=== PATIENT | female | born 1975 | race Caucasian/White ===

== ENCOUNTER 2017-01-29 10:11 | Outpatient (CLI) | payer BC ==
[~2017-01-29] VITALS: Ht 181.6 cm; Wt 105.7 kg
[~2017-01-29 10:11] MED LIST: ASP81TEC; ASPI-999 PO; CEFD300C PO; CPR250T PO; CYCL10TA9 PO; DOXY100T61 PO; IBP600T1 PO; LEVO750T6 PO; METR500T PO; NAPR-243 PO; OXYC-12 PO; PNV1CAPS13 PO; PREN1TAB39 PO; PROM12.59 PO; TAPE50TA2 PO; TRM50T PO
--- OUTSIDE RECORDS SUMMARY | 2017-01-29 10:17 | XMS REPORT | Continuity of Care Document ---
Demographics Preferred Language Unknown Marital Status Unknown Latter Day Affiliation Unknown Race Unknown Ethnic Group Unknown Author Author [facility] Address Unknown Phone Unavailable Allergies Active Description Code Type Severity Reaction Onset Reported/Identified Relationship to Patient Clinical Status Yes Demerol Drug Allergy N/A N/A 08/03/2009 Yes morphine Drug Allergy N/A N/A 08/03/2009 Yes [id number] (OPIOID ANALGESICS) [id number] (OPIOID ANALGESICS) Mild N/A 10/11/2009 Yes meperidine [id number] Drug Allergy Mild N/A 10/11/2009 Yes morphine [id number] Drug Allergy Mild N/A 10/11/2009 Yes oxycodone [id number] Drug Allergy Mild ITCHING, CAN TA 04/29/2014 Medications Problems Date Dx Coded Attending Type Code Diagnosis Diagnosed By 01/12/2009 599.0 Urinary Tract Infection Site Not Specified 01/12/2009 599.0 Urinary Tract Infection Site Not Specified 08/03/2009 465.9 Acute Upper Respiratory Infections Of Unspecified Site 08/03/2009 465.9 Acute Upper Respiratory Infections Of Unspecified Site 10/03/2009 V72.31 ROUTINE GYNECOLOGICAL EXAMINATION 10/03/2009 V72.31 ROUTINE GYNECOLOGICAL EXAMINATION 01/20/2010 641.90 Comp. Bleed In Preg. Unsp 01/20/2010 649.50 Maternal Spotting Complicat / / Puerperium 01/20/2010 656.13 Rh ISOIMMUN AFFECT CARE OF MOTHER ANTEPARTUM COND/COMPLIC 01/20/2010 V23.89 Supervision Of Other High-risk 01/20/2010 641.90 Comp. Bleed In Preg. Unsp 01/20/2010 649.50 Maternal Spotting Complicat / / Puerperium 01/20/2010 656.13 Rh ISOIMMUN AFFECT CARE OF MOTHER ANTEPARTUM COND/COMPLIC 01/20/2010 V23.89 Supervision Of Other High-risk 01/26/2010 V74.5 STD SCREEN 01/26/2010 V74.5 STD SCREEN 03/06/2010 454.8 VARICOSE VEINS WITH PAIN 03/06/2010 V22.1 Pc Other Normal 03/06/2010 454.8 VARICOSE VEINS WITH PAIN 03/06/2010 V22.1 Pc Other Normal 03/23/2010 787.01 Nausea With Vomiting 03/23/2010 787.01 Nausea With Vomiting 07/06/2010 530.81 Esophageal Reflux 07/06/2010 530.81 Esophageal Reflux 07/31/2010 625.9 Female Pelvic Pain 07/31/2010 625.9 Female Pelvic Pain 08/11/2010 Ot 623.5 08/11/2010 Ot 654.73 08/23/2010 709.9 DERMATOLOGY - SKIN CONDITION 08/23/2010 709.9 DERMATOLOGY - SKIN CONDITION 09/21/2010 Ot 641.21 09/21/2010 Ot 645.11 09/21/2010 Ot 658.01 09/21/2010 Ot 659.71 09/21/2010 Ot 660.31 09/21/2010 Ot 663.31 09/21/2010 Ot 671.01 09/21/2010 Ot 671.81 09/21/2010 Ot V06.1 09/21/2010 Ot V27.0 11/01/2010 V24.2 ROUTINE FOLLOW-UP 11/01/2010 V24.2 ROUTINE FOLLOW-UP 01/11/2013 Ot 562.11 DIVERTICULITIS COLON (W/O MENT OF HEMORR 02/23/2013 Ot 562.10 DIVERTICULOSIS COLON (W/O MENT OF HEMORR 06/21/2013 BERTIN DOBBINS, HEIKE R Ot 082.40 UNSPEC EHRLICHIOSIS 06/21/2013 BERTIN DOBBINS, HEIKE R Ot 478.19 OTHER DISEASE OF NASAL CAVITY AND SINUSE 06/21/2013 BERTIN DOBBINS, HEIKE R Ot 790.6 ABN BLOOD CHEMISTRY NEC 04/17/2014 MAGNO DOBBINS, BEKAH Soto Ot 562.11 DIVERTICULITIS COLON (W/O MENT OF HEMORR 04/17/2014 BEKAH KIRAN MD Ot 789.04 ABDOMINAL PAIN, LEFT LOWER QUADRANT 05/03/2014 HERNÁN DOBBINS, BENNY Rose Ot 562.11 DIVERTICULITIS COLON (W/O MENT OF HEMORR 10/20/2014 Ot V28.89 10/20/2014 Ot V07.2 10/20/2014 Ot V72.84 10/20/2014 BENNY JIM MD Ot 562.11 10/20/2014 HERNÁN DOBBINS, BENNY M Ot V72.83 10/20/2014 HERNÁN DOBBINS, BENNY M Ot V74.8 10/21/2014 Ot V28.89 10/21/2014 Ot V07.2 10/21/2014 Ot V72.84 10/21/2014 HERNÁN DOBBINS, BENNY Rose Ot 562.11 10/21/2014 HERNÁN DOBBNIS, BENNY M Ot V72.83 10/21/2014 HERNÁN DOBBINS, BENNY Rose Ot V74.8 04/18/2015 Ot V28.89 04/18/2015 Ot V07.2 04/18/2015 Ot V72.84 04/18/2015 HERNÁN DOBBINS, BENNY Rose Ot 562.11 04/18/2015 HERNÁN DOBBINS, BENNY Rose Ot V72.83 04/18/2015 HERNÁN DOBBINS, BENNY Rose Ot V74.8 04/18/2015 CARISSA NOLASCO DO Ot 451.0 SUPERFIC PHLEBITIS-LEG 04/18/2015 CARISSA NOLASCO DO Ot 729.5 PAIN IN LIMB 04/18/2015 Ot V28.89 04/18/2015 Ot V07.2 04/18/2015 Ot V72.84 04/18/2015 HERNÁN DOBBINS, BENNY Rose Ot 562.11 04/18/2015 HERNÁN DOBBINS, BENNY Rose Ot V72.83 04/18/2015 HERNÁN DOBBINS, BENNY Rose Ot V74.8 10/19/2015 Ot V28.89 10/19/2015 Ot V07.2 10/19/2015 Ot V72.84 10/19/2015 HERNÁN DOBBINS, BENNY Rose Ot 562.11 10/19/2015 HERNÁN DOBBINS, BENNY Rose Ot V72.83 10/19/2015 HERNÁN DOBBINS, BENNY Rose Ot V74.8 10/24/2015 Ot V28.89 10/24/2015 Ot V07.2 10/24/2015 Ot V72.84 10/24/2015 HERNÁN DOBBINS, BENNY Rose Ot 562.11 10/24/2015 HERNÁN DOBBINS, BENNY Rose Ot V72.83 10/24/2015 HERNÁN DOBBINS, BENNY Rose Ot V74.8 10/24/2015 CARISSA NOLASCO DO Ot S80.11XA CONTUSION OF RIGHT LOWER LEG, INITIAL EN 10/24/2015 CARISSA NOLASCO DO Ot X58.XXXA EXPOSURE TO OTHER SPECIFIED FACTORS, INI 10/24/2015 CARISSA NOLASCO DO Ot Y99.8 OTHER EXTERNAL CAUSE STATUS 10/24/2015 CARISSA NOLASCO DO Ot Z86.718 PERSONAL HISTORY OF OTHER VENOUS THROMBO 02/10/2016 Ot V72.84 02/10/2016 HERNÁN DOBBINS, BENNY Rose Ot 562.11 02/10/2016 BENNY JIM MD Ot V72.83 02/10/2016 BENNY JIM MD Ot V74.8 05/28/2016 CANDIS MONSALVE Ot S73.101A UNSPECIFIED SPRAIN OF RIGHT HIP, INITIAL 05/28/2016 CANDIS MONSALVE Ot S83.91XA SPRAIN OF UNSPECIFIED SITE OF RIGHT KNEE 05/28/2016 CANDIS MONSALVE Ot S93.402A SPRAIN OF UNSPECIFIED LIGAMENT OF LEFT A 05/28/2016 CANDIS MONSALVE Ot W10.9XXA FALL (ON) (FROM) UNSPECIFIED STAIRS AND 05/28/2016 CANDIS MONSALVE Ot Y92.[address] 05/28/2016 CANDIS MONSALVE Ot Y99.8 OTHER EXTERNAL CAUSE STATUS 05/28/2016 Ot V72.84 EXAM PRE-OPERATIVE NOS 05/28/2016 HERNÁN DOBBINS, BENNY Rose Ot 562.11 DIVERTICULITIS COLON (W/O MENT OF HEMORR 05/28/2016 BENNY JIM MD Ot V72.83 EXAM PRE-OPERATIVE NEC 05/28/2016 BENNY JIM MD Ot V74.8 SCREEN-BACTERIAL DIS NEC 05/29/2016 CANDIS MONSALVE Ot S73.101A UNSPECIFIED SPRAIN OF RIGHT HIP, INITIAL 05/29/2016 CANDIS MONSALVE Ot S83.91XA SPRAIN OF UNSPECIFIED SITE OF RIGHT KNEE 05/29/2016 CANDIS MONSALVE Ot S93.402A SPRAIN OF UNSPECIFIED LIGAMENT OF LEFT A 05/29/2016 CANDIS MONSALVE Ot W10.9XXA FALL (ON) (FROM) UNSPECIFIED STAIRS AND 05/29/2016 CANDIS MONSALVE Ot Y92.[address] 05/29/2016 CANDIS MONSALVE Ot Y99.8 OTHER EXTERNAL CAUSE STATUS 11/23/2016 Ot V72.84 EXAM PRE-OPERATIVE NOS 11/23/2016 HERNÁN DOBBINS, BENNY Rose Ot 562.11 DIVERTICULITIS COLON (W/O MENT OF HEMORR 11/23/2016 BENNY JIM MD Ot V72.83 EXAM PRE-OPERATIVE NEC 11/23/2016 BENNY JIM MD Ot V74.8 SCREEN-BACTERIAL DIS NEC 12/24/2016 Ot V72.84 EXAM PRE-OPERATIVE NOS 12/24/2016 HERNÁN DOBBINS, BENNY Rose Ot 562.11 DIVERTICULITIS COLON (W/O MENT OF HEMORR 12/24/2016 BENNY JIM MD Ot V72.83 EXAM PRE-OPERATIVE NEC 12/24/2016 BENNY JIM MD Ot V74.8 SCREEN-BACTERIAL DIS NEC Procedures Code Description [place] [address] ROUTINE VENIPUNCTURE 04/14/2013 56896 URINE TEST (IN-HOUSE) 04/14/2013 [id number] HCG QUALITATIVE W/ REFLEX 04/14/2013 52736 ROUTINE VENIPUNCTURE 04/16/2013 41080 HCG QUANTITATIVE 04/16/2013 17.36 LAPAROSCOPIC SIGMOIDECTOMY 04/28/2014 38.93 VENOUS CATHETERIZATION NEC 04/28/2014 Results Encounters ACCT No. Visit Date/Time Discharge Status Pt. Type Provider Facility Loc./Unit Complaint [id number] 04/16/2013 14:46:00 Document Registration [id number] 04/14/2013 17:34:00 Document Registration
[2017-01-29] MEDS ORDERED: PREN1TAB86 PO (10:38)
[2017-01-29] MEDS ORDERED: HEPA100D37 IV (10:38)
[2017-01-29 10:40] VITALS: BP 111/68
[2017-02-04] MEDS ORDERED: IBUP-1773 PO (08:19)
[2017-02-04] MEDS ORDERED: HYDR-3812 PO (08:19)
[2017-02-04] MEDS ORDERED: DOCU100C37 PO (08:19)
[2017-02-04] MEDS ORDERED: ENOX80DI7 SQ (08:19)
== END 2017-01-29 11:51 | disposition home or self-care (01) ==
LOC: PREOP 10:11
PROVIDERS: ATTEND Obstetrics & Gynecology
DX: Z01.818 Encounter for other preprocedural examination (principal); Z11.2 Encounter for screening for other bacterial diseases; O34.211 Maternal care for low transverse scar from previous cesarean delivery
CPT/HCPCS: 87081

== ENCOUNTER 2017-02-04 06:00 | Inpatient (IN) | payer BC ==
[~2017-02-04] VITALS: Ht 181.6 cm; Wt 104.3 kg
[~2017-02-04 06:00] MED LIST changes: +CITRIC ACID/SOB CIT (BICITRA) 30 ML UDC ONE; +HEPA100D37 IV; +LACTATED RINGERS 1,000 ML IV ONE; +METOCLOPRAMIDE INJ 10 MG/2 ML (REGLAN) ONE; +PREN1TAB86 PO
[2017-02-04 06:18] VITALS: BP 126/61
--- OUTSIDE RECORDS SUMMARY | 2017-02-04 06:39 | XMS REPORT | Continuity of Care Document ---
Demographics Preferred Language Unknown Marital Status Unknown Jain Affiliation Unknown Race Unknown Ethnic Group Unknown Author Author [facility] Address Unknown Phone Unavailable Allergies Active Description Code Type Severity Reaction Onset Reported/Identified Relationship to Patient Clinical Status Yes Demerol Drug Allergy N/A N/A 08/03/2009 Yes morphine Drug Allergy N/A N/A 08/03/2009 Yes [id number] (OPIOID ANALGESICS) [id number] (OPIOID ANALGESICS) Mild N/A 10/11/2009 Yes meperidine [id number] Drug Allergy Mild N/A 10/11/2009 Yes morphine [id number] Drug Allergy Mild N/A 10/11/2009 Yes oxycodone [id number] Drug Allergy Mild ITCHING, CAN TA 04/29/2014 [...] DOBBINS, BENNY Rose Ot 562.11 10/21/2014 HERNÁN DOBBINS, BENNY M Ot V72.83 10/21/2014 HERNÁN DOBBINS, [...] OF UNSPECIFIED LIGAMENT OF LEFT A 05/28/2016 CANIDS MONSALVE Ot W10.9XXA FALL (ON) (FROM) UNSPECIFIED STAIRS AND 05/28/2016 CANDIS MONSALVE Ot Y92.[address] 05/28/2016 CANDIS MONSALVE Ot Y99.8 [...] STAIRS AND 05/29/2016 CANDIS MONSALVE Ot Y92.[address] 05/29/2016 CANDIS MONSALVE Ot Y99.8 OTHER EXTERNAL CAUSE STATUS 11/23/2016 Ot V72.84 EXAM PRE-OPERATIVE NOS 11/23/2016 HERNÁN DOBBINS, BENNY Rose Ot 562.11 DIVERTICULITIS COLON (W/O MENT OF HEMORR 11/23/2016 BENNY JIM MD Ot V72.83 EXAM PRE-OPERATIVE NEC 11/23/2016 BENNY JIM MD Ot V74.8 SCREEN-BACTERIAL DIS NEC 12/24/2016 Ot V72.84 EXAM PRE-OPERATIVE NOS 12/24/2016 BENNY JIM MD Ot 562.11 DIVERTICULITIS COLON (W/O MENT OF HEMORR 12/24/2016 BENNY JIM MD Ot V72.83 EXAM PRE-OPERATIVE NEC 12/24/2016 BENNY JIM MD Ot V74.8 SCREEN-BACTERIAL DIS NEC 01/30/2017 JAGJIT SUGGS DO Ot O34.211 MATERN CARE FOR LOW TRANSVERSE SCAR FROM 01/30/2017 JAGJIT SUGGS DO Ot Z01.818 ENCOUNTER FOR OTHER PREPROCEDURAL EXAMIN 01/30/2017 JAGJIT SUGGS DO Ot Z11.2 ENCOUNTER FOR SCREENING FOR OTHER BACTER Procedures Code Description [place] [address] ROUTINE VENIPUNCTURE 04/14/2013 62962 URINE TEST (IN-HOUSE) 04/14/2013 [id number] HCG QUALITATIVE W/ REFLEX 04/14/2013 67953 ROUTINE VENIPUNCTURE 04/16/2013 47228 HCG QUANTITATIVE 04/16/2013 17.36 LAPAROSCOPIC SIGMOIDECTOMY 04/28/2014 38.93 VENOUS CATHETERIZATION NEC 04/28/2014 Results Test Result Range Methicillin resistant Staphylococcus aureus (MRSA) screening culture - 10:45 Methicillin resistant Staphylococcus aureus (MRSA) screening culture NEG NRG Encounters ACCT No. Visit Date/Time Discharge Status Pt. Type Provider Facility Loc./Unit Complaint [id number] 04/16/2013 14:46:00 Document Registration [id number] 04/14/2013 17:34:00 Document Registration
[2017-02-04] MEDS ORDERED: LACTATED RINGERS 1,000 ML IV PRN ×2 (06:46)
[2017-02-04 06:54] LABS: BASOPHILS % (AUTO) 0 % (0-10); EOSINOPHILS # (AUTO) 0.1 10^3/uL (0.0-0.3); EOSINOPHILS % (AUTO) 1 % (0-10); LYMPHOCYTES % (AUTO) 17 % (12-44); MEAN CORPUSCULAR HEMOGLOBIN 27 PG (25-34); MEAN CORPUSCULAR HGB CONC 33 G/DL (32-36); MEAN CORPUSCULAR VOLUME 83 FL (80-99); MEAN PLATELET VOLUME 12.5 FL (7.4-10.4); MONOCYTES # (AUTO) 0.9 X 10^3 (0.0-1.0); MONOCYTES % (AUTO) 8 % (0-12); NEUTROPHILS # (AUTO) 8.6 X 10^3 (1.8-7.8); NEUTROPHILS % (AUTO) 74 % (42-75); PLATELET COUNT 216 10^3/uL (130-400); RED BLOOD COUNT 3.81 10^6/uL (4.35-5.85); RED CELL DISTRIBUTION WIDTH 15.8 % (10.0-14.5); WHITE BLOOD COUNT 11.6 10^3/uL (4.3-11.0)
[2017-02-04] MEDS ORDERED: METOCLOPRAMIDE INJ 10 MG/2 ML (REGLAN) IV ONE (07:00)
[2017-02-04] MEDS ORDERED: CITRIC ACID/SOB CIT (BICITRA) 30 ML UDC PO ONE (07:00)
[2017-02-04] MEDS ORDERED: FAMOTIDINE 20MG/2ML IV (PEPCID) IV ONE (07:00)
[2017-02-04] MEDS ORDERED: OXYTOCIN/NORMAL SALINE 500 ML IV ONE ×2 (07:07→08:08)
[2017-02-04] MEDS ORDERED: fentaNYL INJECTION 100 MCG/2 ML AMP ONE (07:08)
[2017-02-04] MEDS ORDERED: morphine PF (DURAMORPH) 10 MG/10 ML AMP ONE (07:08)
--- NOTE | 2017-02-04 07:10 | History & Physical-OB ---
OB - Chief Complaint & HPI Date Date of Admission: Date of Admission: Feb 04, 2017 at 6:00 am Chief Complaint/History OB-Reason for Admission/Chief: Section Hx : 6 Hx Para: 4 Expected Date of Delivery: Feb 10, 2017 Gestational Age in Weeks: 39 Gestational Age in Days: 1 Indication for : desires repeat Admission Nurse Assessment Rev: Yes History of Labs Laboratory Tests Test 02/04/17 06:20 Range/Units Basophils # (Auto) 0.0 0.0-0.1 10^3/uL Basophils (%) (Auto) 0 0-10 % Eosinophils # (Auto) 0.1 0.0-0.3 10^3/uL Eosinophils (%) (Auto) 1 0-10 % Hematocrit 32 L 35-52 % Hemoglobin 10.4 L 11.5-16.0 G/DL Lymphocytes # (Auto) 2.0 1.0-4.0 X 10^3 Lymphocytes (%) (Auto) 17 12-44 % Mean Corpuscular Hemoglobin 27 25-34 PG Mean Corpuscular Hemoglobin Concent 33 32-36 G/DL Mean Corpuscular Volume 83 80-99 FL Mean Platelet Volume 12.5 H 7.4-10.4 FL Monocytes # (Auto) 0.9 0.0-1.0 X 10^3 Monocytes (%) (Auto) 8 0-12 % Neutrophils # (Auto) 8.6 H 1.8-7.8 X 10^3 Neutrophils (%) (Auto) 74 42-75 % Platelet Count 216 130-400 10^3/uL Red Blood Count 3.81 L 4.35-5.85 10^6/uL Red Cell Distribution Width 15.8 H 10.0-14.5 % White Blood Count 11.6 H 4.3-11.0 10^3/uL O neg Antibody neg RI RPR NR HIV NR GC neg GBS neg Allergies and Home Medications Allergies Coded Allergies: meperidine (Unverified Allergy, Mild, 10/11/09) morphine (Unverified Allergy, Mild, 10/11/09) oxycodone (Unverified Allergy, Mild, ITCHING, CAN TAKE WITH BENADRYL. CAN TAKE HYDROCODONE FINE, 04/29/14) CAN TAKE WITH BENADRYL Uncoded Allergies: [id number] (OPIOID ANALGESICS) (Allergy, Mild, 10/11/09) Home Medications Heparin Sodium,Porcine/Pf 1,000 Unit/10 Ml Syringe 5,000 UNIT IV BID (Reported) Vit W-Ca,Fe,FA(<1 mg) 1 Each Tablet 1 EACH PO DAILY (Reported) OB - History Hx of Present Care: Yes Ultrasounds: Normal mid trimester US Obstetrical Complications: Other (AMA, Elevated 1 hr GTT) Medical Complications: None, Other (history of DVT) Obstetrical History Hx Termination: No Hx Multiple Gestation: No Hx Stillbirth: No Hx Complication: No Hx Induced Hypertens: No Hx Maternal Gestational Diabet: No Delivery History Hx Dystocia: No Hx Large For Gestational Age I: Yes Hx Small for Gestational Age I: No Hx Section: No Hx Vaginal Delivery Post C-Sec: No Hx Blood Disorders: No Adverse Rxn to Tranfusion: No (N/A) Patient Past Medical History Hx of DVT Social History/Family History HIV/AIDS: No Sexually Transmitted Disease: No Immunizations Tetanus Booster (TDap): Unknown Date of Influenza Vaccine: Oct 08, 2016 OB - Admission Exam Physical Exam HEENT: NCAT Lungs: Clear Abdomen: Gravid Extremities: Normal Reflexes: Normal Membranes: Intact Heart Rate: 130's Accelerations: Accelerations Present Decelerations: No Decelerations Short Term Variability: Present Care Home Variability: Average (6-25) Contractions on Admission: >10 Minutes Apart Intensity: Mild Labs Laboratory Tests Test 02/04/17 06:20 Range/Units Basophils # (Auto) 0.0 0.0-0.1 10^3/uL Basophils (%) (Auto) 0 0-10 % Eosinophils # (Auto) 0.1 0.0-0.3 10^3/uL Eosinophils (%) (Auto) 1 0-10 % Hematocrit 32 L 35-52 % Hemoglobin 10.4 L 11.5-16.0 G/DL Lymphocytes # (Auto) 2.0 1.0-4.0 X 10^3 Lymphocytes (%) (Auto) 17 12-44 % Mean Corpuscular Hemoglobin 27 25-34 PG Mean Corpuscular Hemoglobin Concent 33 32-36 G/DL Mean Corpuscular Volume 83 80-99 FL Mean Platelet Volume 12.5 H 7.4-10.4 FL Monocytes # (Auto) 0.9 0.0-1.0 X 10^3 Monocytes (%) (Auto) 8 0-12 % Neutrophils # (Auto) 8.6 H 1.8-7.8 X 10^3 Neutrophils (%) (Auto) 74 42-75 % Platelet Count 216 130-400 10^3/uL Red Blood Count 3.81 L 4.35-5.85 10^6/uL Red Cell Distribution Width 15.8 H 10.0-14.5 % White Blood Count 11.6 H 4.3-11.0 10^3/uL OB - Assessment/Plan/Diagnosis Assessment Assessment: section Plan Plan: Section Discharge Diagnosis Diagnosis: 41 yo @ 39.1 AMA Previous c/s Hx of DVT on Heparin GBS neg JAGJIT SUGGS DO Feb 04, 2017 7:10 am
[2017-02-04] MEDS ORDERED: ceFAZolin 2 GM/50 ML NS 50 ML IV ONE (07:15)
[2017-02-04] MEDS ORDERED: KETOROLAC 30 MG/ML VIAL ONE (08:08)
[2017-02-04] MEDS ORDERED: ONDANSETRON 4 MG/2 ML (SDV) Z0FRAN ONE (08:08)
[2017-02-04] MEDS ORDERED: OXYTOCIN/NORMAL SALINE 500 ML IV SCH (08:10)
[2017-02-04] MEDS ORDERED: MEASLES,MUMPS,RUBELLA 1 EA INJ SC SCH (08:15)
[2017-02-04] MEDS ORDERED: ONDANSETRON 4 MG/2 ML (SDV) Z0FRAN IVP PRN (08:15)
[2017-02-04] MEDS ORDERED: TETANUS,DIPTH,PERTUSS P/F (BOOSTRIX) 0.5 ML VIAL IM SCH (08:15)
[2017-02-04] MEDS ORDERED: HYDROmorphone (DILAUDID) 2 MG/ML VIAL IVP PRN (08:15)
[2017-02-04] MEDS ORDERED: HYDR-3812 PO (08:19)
[2017-02-04] MEDS ORDERED: ENOX80DI7 SQ (08:19)
[2017-02-04] MEDS ORDERED: DOCU100C37 PO (08:19)
[2017-02-04] MEDS ORDERED: IBUP-1773 PO (08:19)
--- NOTE | 2017-02-04 08:19 | Discharge Inst-Women's Service ---
Discharge Inst-Women's Serv Depart Medication/Instructions New, Converted or Re-Newed RX: RX on Chart Consults/Follow Up Additional Follow Up: Yes Activity Activity: Activity as Tolerated Driving Instructions: No Driving for 1 Week NO SMOKING: NO SMOKING Nothing Inside Vagina: No Douching, No Kaanapali, No Tampons Diet Discharge Diet: No Restrictions Symptoms to Report to : Bleeding Excessive, Pain Increased, Fever Over 101 Degrees F, Vaginal Bleeding Increase, Questions/Concerns For Any Problems or Questions: Contact Your Physician Skin/Wound Care Infection Signs and Symptoms: Increased Redness, Foul Odor of Wound, Increased Drainage, Skin Itchy or Has a Rash, Increased Swelling, Temperature Above 101 F Operative Area Clean and Dry: Keep Incision Clean/Dry Stitches/[place]/Dermabond: Dermabond, Care of Stitches Bathing Instructions: JAGJIT Montenegro DO Feb 04, 2017 08:19
[2017-02-04] MEDS ORDERED: morphine PF (DURAMORPH) 10 MG/10 ML AMP INJ ONE (08:30)
[2017-02-04] MEDS ORDERED: ONDANSETRON 4 MG/2 ML (SDV) Z0FRAN IV PRN (08:30)
[2017-02-04] MEDS ORDERED: fentaNYL INJECTION 100 MCG/2 ML AMP INJ ONE (08:30)
[2017-02-04] MEDS ORDERED: NALOXONE 0.4 MG/ML 1 ML (NARCAN) VIAL IV PRN (08:30)
--- NOTE | 2017-02-04 09:07 | OPERATIVE REPORT ---
PROCEDURE PHYSICIAN: DELANO SUGGS DATE OF PROCEDURE: 02/04/2017 PREOPERATIVE DIAGNOSES: 1. 41-year-old G6, P4, at 39 weeks and 1 day gestation. 2. Previous section. 3. Advanced maternal age. 4. History of DVT. POSTOPERATIVE DIAGNOSES: 1. 41-year-old G6, P4, at 39 weeks and 1 day gestation. 2. Previous section. 3. Advanced maternal age. 4. History of DVT. PROCEDURE: Repeat low transverse section. SURGEON: Dr. Delano Suggs STRAP FOLDING MACHINE OPERATOR: Cris Cottrell APRN. ANESTHESIA: Spinal. ESTIMATED BLOOD LOSS: 600 mL. URINE OUTPUT: 100 mL, clear at the end of the procedure. FLUIDS: 1400 mL of lactated ringer solution. FINDINGS: Live male infant weighing 8 pounds, 2 ounces, Apgars of 9 and 9. Grossly normal appearing uterus, bilateral fallopian tubes, and ovaries. SPECIMEN SENT: Placenta. INDICATIONS FOR THE PROCEDURE: This 41-year-old female is a patient who sought her care in my office. She came in for her scheduled repeat section. This morning, we reviewed risks and alternatives including proceeding with ; however, we do not do those here at our facility and she would have to go to another facility. She was agreeable to proceed with a repeat section. The risk of bleeding, infection, damaging any of the surrounding structures, including, but not limited to the bowel, bladder, ureter, kidneys, postoperative hematoma formation, postoperative thromboembolic event, risk from anesthesia, need for hysterectomy. All these things were discussed with the patient. After all of her questions were answered, consent was obtained. The patient was taken the operating room. OPERATIVE REPORT IN DETAIL: Once in the operating room, spinal analgesia was found to be adequate. She was placed in the supine position with leftward tilt, prepped and draped in normal sterile fashion. Fowler catheter is placed at that time. Anesthesia is tested and found to be adequate. A timeout is performed. I then proceed with making a Pfannenstiel skin incision through the previously existing scar using a knife and carried down to the underlying fascia using Bovie cautery. The fascial incision is extended laterally using Bovie cautery. Superior aspect of the fascial incision is then grasped with Marc clamps, tented upward and dissected off the underlying rectus muscles. The inferior aspect of the fascial incision is grasped with Marc clamps, tented upward and dissected off the underlying rectus muscles. The rectus muscles are dissected in midline using Metzenbaum scissors which exposes the peritoneum which is entered bluntly. This incision is extended superior and inferiorly with good visualization of underlying bowel and bladder. Once adequate peritoneal access is obtained, I placed an Shaheen ring retractor in the peritoneal incision which offers excellent lateral and sidewall retraction. I identify the lower uterine segment and it is found to be thinned out. I make a low transverse incision through the vesicouterine peritoneum and bluntly dissect this off the lower uterine segment. I then proceed with my myotomy until membranes are visualized. I extend the uterine incision laterally and superiorly using banded scissors. I rupture membranes using an Allis clamp. Clear fluid is noted. The infant is found in vertex presentation. I placed my hand beneath the infant's head. With gentle fundal pressure, the 's head is elevated up to the incision and delivered through the incision where the oropharynx and nares are bulb suctioned. Anterior posterior shoulders were delivered and infant is then brought onto the operative field where the cord is doubly clamped and cut and the is handed off to the awaiting nurses in attendance. The cord blood was collected. Three vessel cord with intact placenta is delivered spontaneously thereafter. IV Pitocin is initiated to facilitate uterine contraction. The uterine fundus becomes firmer with bimanual massage. The uterus is then exteriorized and cleared of all endometrial, clots and debris. I then close the uterine incision using 0 Vicryl suture in running lock fashion. A second layer of imbricating 0 Monocryl is placed. Excellent hemostasis is noted after doing so. I then placed the uterus back within the pelvis and copiously irrigated the pelvis using normal saline. There is no active bleeding noted from any my dissection planes. I then place intercede over my low transverse incision and proceed with closing the peritoneum using 3-0 Vicryl suture in a running fashion. The rectus muscles are reapproximated using 3-0 Vicryl suture in interrupted fashion. The fascia was reapproximated using 0 Vicryl suture in a running fashion. The subcutaneous tissues is approximated using 3-0 plain in an interrupted subcutaneous stitch and the skin is reapproximated using 4-0 Monocryl in a running subcuticular. Dermabond is applied to the incision and a sterile dressing and adhesive white tape. The patient tolerated the procedure well and was taken to the recovery area in stable condition. Lap and sponge counts were correct at the end of the procedure, instrument count is correct as well. 2 grams of Ancef were given preoperatively for infection prophylaxis. Job ID: [id number] Dictated Date: 02/04/2017 08:25:07 [employer] Worker Date: 02/04/2017 08:55:22 / barbara
[2017-02-04 09:45] VITALS: BP 97/57
[2017-02-04 11:30] VITALS: BP 93/60
[2017-02-04] MEDS: HYDROcodone/APAP 5 MG/325 MG (LORTAB) TAB PO PRN ×3 (12:13→21:47)
[2017-02-04] MEDS ORDERED: NS IV 500 ML 500 ML IV ONE (12:45)
[2017-02-04 14:10] VITALS: BP 98/55
[2017-02-04] MEDS ORDERED: D5 LR IV SOLUTION 1,000 ML IV ONE (14:31)
[2017-02-04] MEDS: KETOROLAC 30 MG/ML VIAL IVP SCH ×2 (14:39→20:57)
[2017-02-04] MEDS: D5 LR IV SOLUTION 1,000 ML IV SCH ×2 (14:50→22:52)
[2017-02-04 16:50] VITALS: BP 102/57
[2017-02-04] MEDS: DOCUSATE SODIUM 100 MG (COLACE) CAP PO SCH ×2 (19:47→20:57)
[2017-02-04 20:05] VITALS: BP 93/52
[2017-02-04] MEDS: CATHETER FLUSH 10 ML SYR IV SCH (21:39)
[2017-02-05 00:15] VITALS: BP 101/61
[2017-02-05 03:24] VITALS: BP 100/57
[2017-02-05] MEDS: KETOROLAC 30 MG/ML VIAL IVP SCH (03:24)
[2017-02-05] MEDS: HYDROcodone/APAP 5 MG/325 MG (LORTAB) TAB PO PRN ×4 (03:24→21:04)
[2017-02-05 06:19] LABS: BASOPHILS % (AUTO) 0 % (0-10); EOSINOPHILS # (AUTO) 0.1 10^3/uL (0.0-0.3); EOSINOPHILS % (AUTO) 1 % (0-10); LYMPHOCYTES # (AUTO) 1.6 X 10^3 (1.0-4.0); LYMPHOCYTES % (AUTO) 16 % (12-44); MEAN CORPUSCULAR HEMOGLOBIN 28 PG (25-34); MEAN CORPUSCULAR HGB CONC 33 G/DL (32-36); MEAN CORPUSCULAR VOLUME 84 FL (80-99); MEAN PLATELET VOLUME 12.3 FL (7.4-10.4); MONOCYTES # (AUTO) 0.7 X 10^3 (0.0-1.0); MONOCYTES % (AUTO) 7 % (0-12); NEUTROPHILS # (AUTO) 7.5 X 10^3 (1.8-7.8); NEUTROPHILS % (AUTO) 75 % (42-75); PLATELET COUNT 170 10^3/uL (130-400); RED CELL DISTRIBUTION WIDTH 15.7 % (10.0-14.5); WHITE BLOOD COUNT 9.9 10^3/uL (4.3-11.0)
[2017-02-05] MEDS: CATHETER FLUSH 10 ML SYR IV SCH (07:16)
[2017-02-05 08:02] VITALS: BP 103/64
--- NOTE | 2017-02-05 09:03 | Progress Note-Standard ---
Standard Progress Note Progress Notes/Assess & Plan Progress/Assessment & Plan Patient doing well POD 1 RLTCS. Pain well controlled. Fowler out, patient ambulating and voiding freely. Lochia light Vital Sign - Last 12Hours 02/05/17 02/05/17 02/05/17 00:15 03:24 08:02 Temp 97.5 97.8 96.9 Pulse 64 60 53 Resp 18 18 18 B/P 101/61 100/57 103/64 Pulse Ox 96 95 99 O2 Delivery Room Air Room Air Room Air Intake and Output 02/05/17 00:00 Intake Total 3180 ml Output Total 450 ml Balance 2730 ml Laboratory Tests 02/05/17 05:55: Basophils # (Auto) 0.0, Basophils (%) (Auto) 0, Eosinophils # (Auto) 0.1, Eosinophils (%) (Auto) 1, Hematocrit 28L, Hemoglobin 9.1L, Lymphocytes # (Auto) 1.6, Lymphocytes (%) (Auto) 16, Mean Corpuscular Hemoglobin 28, Mean Corpuscular Hemoglobin Concent 33, Mean Corpuscular Volume 84, Mean Platelet Volume 12.3H, Monocytes # (Auto) 0.7, Monocytes (%) (Auto) 7, Neutrophils # ( Auto) 7.5, Neutrophils (%) (Auto) 75, Platelet Count 170, Red Blood Count 3.30L , Red Cell Distribution Width 15.7H, White Blood Count 9.9 Incision: c/d/i Diagnosis: POD 1 RLTCS Acute blood loss anemia AMA Hx of DVT P: Restart lovenox today Encourage ambulation PO care and precautions Anticipate dc tomorrow or JAGJIT SUGGS DO Feb 05, 2017 09:03
[2017-02-05] MEDS: IBUPROFEN 600 MG (MOTRIN) TAB PO SCH ×3 (09:24→20:06)
[2017-02-05] MEDS: ENOXAPARIN 80 MG/0.8 ML (LOVENOX) SYR SC SCH (10:10)
[2017-02-05 14:30] VITALS: BP 93/54
[2017-02-05] MEDS: DOCUSATE SODIUM 100 MG (COLACE) CAP PO SCH ×2 (14:36→20:06)
[2017-02-05 17:50] VITALS: BP 109/60
[2017-02-05 20:10] VITALS: BP 109/67
[2017-02-06] MEDS: HYDROcodone/APAP 5 MG/325 MG (LORTAB) TAB PO PRN ×2 (03:14→08:11)
[2017-02-06] MEDS: IBUPROFEN 600 MG (MOTRIN) TAB PO SCH ×3 (03:14→14:12)
[2017-02-06 03:15] VITALS: BP 112/72
[2017-02-06] MEDS: DOCUSATE SODIUM 100 MG (COLACE) CAP PO SCH (08:08)
[2017-02-06] MEDS: ENOXAPARIN 80 MG/0.8 ML (LOVENOX) SYR SC SCH (08:09)
[2017-02-06 08:55] VITALS: BP 127/74
--- NOTE | 2017-02-06 11:10 | Progress Note-Standard ---
Standard Progress Note Progress Notes/Assess & Plan Progress/Assessment & Plan Patient doing well POD 2 RLTCS. Pain well controlled. Feeling well, patient ambulating and voiding freely. Lochia light Vital Sign - Last 12Hours 02/06/17 02/06/17 03:15 08:55 Temp 97.9 97.2 Pulse 55 69 Resp 18 18 B/P 112/72 127/74 Pulse Ox 95 97 O2 Delivery Room Air Room Air Intake and Output 02/06/17 00:00 Intake Total 2080 ml Output Total 1625 ml Balance 455 ml Incision: c/d/i Diagnosis: POD 2 RLTCS Acute blood loss anemia AMA Hx of DVT P: Continue lovenox Encourage ambulation PO care and precautions Anticipate dc today JAGJIT SUGGS DO Feb 06, 2017 11:10 am
== END 2017-02-06 14:40 | disposition home or self-care (01) | DRG 765 ==
LOC: LDRP 06:00
PROVIDERS: ADMIT Obstetrics & Gynecology; ATTEND Obstetrics & Gynecology
PROC: 10D00Z1 Extraction of Products of Conception, Low, Open Approach (ICD-10-PCS; principal; 2017-02-04 07:17)
DX: O34.211 Maternal care for low transverse scar from previous cesarean delivery (principal); Z86.718 Personal history of other venous thrombosis and embolism; Z3A.39 39 weeks gestation of pregnancy; Z37.0 Single live birth; O90.81 Anemia of the puerperium; D62 Acute posthemorrhagic anemia; Z23 Encounter for immunization
CPT/HCPCS: 36415; 85025; 86850; 86900; 86901; 88307; 90715; 94664

== ENCOUNTER → 2022-04-17 | Outpatient (REF) ==
[~2022-04-17] MED LIST changes: +ACHD5005 PO; -CITRIC ACID/SOB CIT (BICITRA) 30 ML UDC ONE; +CYCL10TA25 PO; -CYCL10TA9 PO; +DOCU100C37 PO; +ENOX80DI7 SQ; +IBUP-1773 PO; -LACTATED RINGERS 1,000 ML IV ONE; -METOCLOPRAMIDE INJ 10 MG/2 ML (REGLAN) ONE
--- NOTE | 2022-04-17 13:40 | Diagnostic Imaging Report ---
INDICATION: Twisting injury with pain. FINDINGS: The three view right wrist shows no fracture, dislocation, or opaque foreign body. IMPRESSION: Unremarkable 3 view wrist series. Dictated by: Dictated on workstation # [id number]
== END | disposition home or self-care (01) ==
LOC: OCC 13:14
PROVIDERS: ATTEND Nurse Practitioner Family
DX: Z01.818 Encounter for other preprocedural examination (principal)
CPT/HCPCS: 73110